=== PATIENT | female | born 1970 | race Caucasian/White ===

== ENCOUNTER → 2016-08-04 | Outpatient (CLI) | payer OTHER ==
[~2016-08-04] MED LIST: ALBUTEROL17 GM INH; BENTYL20 M1 PO; BENZONATATE PO; CLEOCIN HCL300 M1 PO; CLEOCIN PO; DELTASONE20 MG PO; EFFEXOR PO; EFFEXOR XR PO; EFFEXOR-XR150 MG PO; LIORESAL10 MG; NAPROSYN375 MG PO; NAPROSYN500 MG PO; NAPROXEN500 M1 PO; NEURONTIN PO; PREDNISONE PO; ROBITUSSIN A-C S5 ML PO; STERAPRED5 MG/DOSE1 PO; SYNTHROID PO; SYNTHROID0.05 MG PO; TRAMADOL HCL50 M1 PO; TRAMADOL HCL50 M2 PO; TRAZODONE HCL100 MG PO; TYLENOL #3 PO; ULTRAM PO; VOLTAREN75 MG PO
--- NOTE | ~2016-08-04 | MR32 ---
[facility] A Service of [facility] & [facility] RADIOLOGY TEXT RESULTS PATIENT: AKSHAT FARRIS LOCATION: [facility] : 66 UNIT #: [id number] AGE: [address]: Celina Duarte MD SEX: F ORDER DR: [id number] [facility] [address] [place], [place] [address] [id number] O MR#: [id number] Acc #: [id number] NAME: AKSHAT FARRIS : 1970 SEX: F STUDY DATE/TIME: 08/04/2016 18:25 UNIT: [facility] ROOM: STUDY DESCRIPTION: MR Cervical Wo Contrast Attending Physician: Celina Duarte M.D. Referring Physician: Celina Duarte M.D. Ordering Physician: Celina Duarte M.D. Primary Care Physician: Oscar Henry Jr., A.P.R.N. MRI CENTER REPORT This report is preliminary unless electronic signature is present. EXAM Cervical MRI HISTORY Crunching sensation in the neck for the past 5 months with left arm pain when turning head to the right. TECHNIQUE Multiplanar imaging of the cervical spine was performed with short and long TR. FINDINGS Alignment is satisfactory. Degenerative changes are seen at multiple cervical levels. At C2-3, there is no significant disc bulging. The canal and foramina are widely patent. At C3-4 there is disc space narrowing with a broad-based posterior disc osteophyte complex that extends to the uncovertebral joints. Central stenosis is mild. Foraminal stenosis is moderate on both sides. At C4-5, there is a grade 1 degenerative spondylolisthesis with a broad-based posterior disc bulge and osteophyte. Central stenosis is mild. Foraminal narrowing is mild to moderate bilaterally and symmetric. At C5-6, there is broad-based posterior disc and osteophyte formation extends more to the right than to the left. Foraminal stenosis is minimal on the left and mild to moderate on the right. Central stenosis is minimal. At C6-7, there is minimal broad-based posterior disc and osteophyte formation with mild bilateral foraminal narrowing. STS. [facility] A Service of [facility] & [facility] RADIOLOGY TEXT RESULTS PATIENT: AKSHAT FARRIS LOCATION: [facility] : [birth year] UNIT #: [id number] AGE: [address]: Celina Duarte MD SEX: F ORDER DR: At C7-T1, there is a broad-based posterior osteophyte that is mild. Canal and foraminal narrowing are not present to a significant degree. The cord is normal in size and signal. There is no evidence of marrow edema or paraspinous mass. IMPRESSION Multilevel cervical degenerative disc disease as described above level by level. The most prominent foraminal narrowing is at C3-4 where it is present bilaterally to a moderately severe degree. There is asymmetric relative right-sided foraminal narrowing at C5-6. No discrete disc herniation is seen. Dictated by... Talha Mckenzie M.D. THIS IS AN ELECTRONICALLY VERIFIED REPORT Talha Mckenzie M.D. at 08/06/2016 7:41 AM CAMRON/sebastian TD: 08/05/2016 15:43 JOB #: [id number] MRI CENTER REPORT Page 1 of 1 COPY
== END | disposition home or self-care (01) ==
LOC: CMRI 18:04
DX: M54.12 Radiculopathy, cervical region (principal); M50.30 Other cervical disc degeneration, unspecified cervical region
CPT/HCPCS: 72141

== ENCOUNTER → 2017-01-14 | Outpatient (CLI) | payer OTHER ==
--- NOTE | ~2017-01-14 | US6 ---
[facility] A Service of [facility] & [facility] RADIOLOGY TEXT RESULTS PATIENT: AKSHAT FARRIS LOCATION: [facility] : 66 UNIT #: [id number] AGE: [address]: Nam Guzmán MD SEX: F ORDER DR: [id number] [facility] [address] [place], [place] [address] [id number] O MR#: [id number] Acc #: [id number] NAME: AKSHAT FARRIS : 1970 SEX: F STUDY DATE/TIME: 01/14/2017 11:51 UNIT: [facility] ROOM: STUDY DESCRIPTION: US Abdominal Limited Attending Physician: Nam Guzmán M.D. Referring Physician: Nam Guzmán M.D. Ordering Physician: Nam Guzmán M.D. Primary Care Physician: Oscar Henry Jr., A.P.R.N. MEDICAL IMAGING REPORT This report is preliminary unless electronic signature is present EXAM Right upper quadrant ultrasound 01/14/2017 HISTORY Nausea, vomiting and epigastric abdominal pain for 6 weeks. FINDINGS Ultrasound examination of the gallbladder is negative. There is no cholelithiasis, gallbladder wall thickening, or bile duct dilatation. The visualized liver is negative. IMPRESSION Negative gallbladder ultrasound examination. Dictated by... Ezequiel Larson M.D. THIS IS AN ELECTRONICALLY VERIFIED REPORT Ezequiel Larson M.D. at 01/15/2017 6:31 AM KRT/to TD: 01/14/2017 21:53 JOB #: [id number] MEDICAL IMAGING REPORT Page 1 of 1 COPY
[2017-01-14 11:39] LABS: HEMATOCRIT 38.3 % (35.0-45.0); HEMOGLOBIN 12.8 gm/dL (12.0-16.0); MEAN CELL VOLUME 97.7 FL (83-96); MEAN CORPUSCULAR HEMOGLOBIN 32.7 PG (28-34); MEAN CORPUSCULAR HGB CONC 33.5 g/dL (30-36); MEAN PLATELET VOLUME 7.5 FL (6.5-11.5); RED BLOOD COUNT 3.92 X10e (3.90-5.30)
[2017-01-14 12:09] LABS: ALBUMIN SERUM 3.9 g/dL (3.5-5.0); BILIRUBIN,TOTAL 0.6 mg/dL (0.2-2.0); BUN/CREATININE RATIO 23.63; CALCIUM SERUM 8.7 mg/dL (8.4-10.2); CREATININE SERUM 1.1 mg/dL (0.6-1.4); GLOM FILT RATE Estimated 59.3 mL/min (>60); POTASSIUM 4.2 mmol/L (3.5-5.1); PROTEIN TOTAL SERUM 7.1 g/dL (6.0-8.3)
== END | disposition home or self-care (01) ==
LOC: CGUS 10:30
PROVIDERS: Internal Medicine
DX: R10.13 Epigastric pain (principal)
CPT/HCPCS: 36415; 76705; 80053; 82150; 83690; 85027